=== PATIENT | female | born 2000 | race Caucasian/White ===

== ENCOUNTER → 2019-11-01 14:58 | Outpatient (BNVA) | payer BC, SELFPAY | PROVIDERS: Family Provider Nurse Practitioner Family; PCP Nurse Practitioner Family; Visit Provider Registered Nurse | DX: Z01.419 Encounter for gynecological examination (general) (routine) without abnormal findings (principal) | CPT/HCPCS: 84450; 87070; 88175 ==

== ENCOUNTER → 2022-09-23 11:09 | Outpatient (BNVA) | payer MEDICAID, SELFPAY | PROVIDERS: Family Provider Nurse Practitioner Family; PCP Registered Nurse; Visit Provider Registered Nurse | DX: Z01.419 Encounter for gynecological examination (general) (routine) without abnormal findings (principal) | CPT/HCPCS: 87081; 87205; 88175 ==

== ENCOUNTER 2023-03-24 15:23 | Outpatient (CLI) | payer OTHER, MEDICAID, SELFPAY ==
--- NOTE | 2023-03-24 15:39 | XR_ITS ---
WS: [id number] Right ankle, 3 views, 03/24/2023 Clinical Data: right ankle pain Comparison: None. Findings: No fractures or dislocations are seen. The ankle mortise is normal. The talus and calcaneus are unrem arkable. No soft tissue swelling over the medial or lateral malleolus is seen. Impression: Negative right ankle.
== END 2023-03-24 15:24 | disposition home or self-care (01) ==
LOC: RAD 15:26
PROVIDERS: Family Provider Nurse Practitioner Family; PCP Registered Nurse; Visit Provider Nurse Practitioner Family
DX: M25.571 Pain in right ankle and joints of right foot (principal)
CPT/HCPCS: 73610

== ENCOUNTER → 2023-12-21 09:47 | Outpatient (BNVA) | payer OTHER, SELFPAY | PROVIDERS: Family Provider Nurse Practitioner Family; PCP Registered Nurse; Visit Provider Nurse Practitioner Family | DX: J02.9 Acute pharyngitis, unspecified (principal) | CPT/HCPCS: 87880 ==

== ENCOUNTER → 2024-03-26 10:49 | Outpatient (BNVA) | payer OTHER, SELFPAY | PROVIDERS: Family Provider Nurse Practitioner Family; PCP Registered Nurse; Visit Provider Nurse Practitioner Family | DX: R30.0 Dysuria; N30.01 Acute cystitis with hematuria | CPT/HCPCS: 81003 ==

== ENCOUNTER → 2024-05-22 10:21 | Outpatient (BNVA) | payer OTHER, SELFPAY | PROVIDERS: Family Provider Nurse Practitioner Family; PCP Registered Nurse; Visit Provider Nurse Practitioner Family | DX: J11.1 Influenza due to unidentified influenza virus with other respiratory manifestations (principal) | CPT/HCPCS: 87804 ==

== ENCOUNTER 2025-01-09 17:26 | Outpatient (CLI) | payer OTHER, SELFPAY ==
--- NOTE | 2025-01-09 17:42 | XR_ITS ---
WS: [id number] Exam: XR foot RT min 3V* [id number] Date/Time of Exam: 01/09/2025 5:42 PM Reason For Exam: right foot pain No fracture. The joints are preserved. No soft tissue foreign bodies. XR/XR foot RT min 3V* [id number] IMPRESSION: 1. Negative RIGHT foot.
== END 2025-01-09 17:27 | disposition home or self-care (01) ==
PROVIDERS: PCP Physician Assistant; Visit Provider Nurse Practitioner Family
DX: M79.671 Pain in right foot (principal)
CPT/HCPCS: 73630